=== PATIENT | male | born 1960 | race Caucasian/White ===

== ENCOUNTER 2016-09-19 21:10 | Emergency (ER) | payer OTHER ==
[~2016-09-19] VITALS: Ht 182.9 cm; Wt 72.7 kg
[~2016-09-19 21:10] MED LIST: BUPR100T8 PO; BUPR1TAB36 PO; OLAN5TAB PO; OMEP20CA11 PO
--- NOTE | 2016-09-19 21:28 | ED.REPORT ---
HPI-General Illness Date of Service Sep 19, 2016 ED Provider: MD Ambrose This is a 56 year old male with a history of TBI, EtOH abuse, multiple suicide attempts, bipolar disorder, frequent ED visits, and HTN brought to the ED by EMS complaining of suicidal ideation and alcohol intoxication. Pt is not cooperative with interview at this time. Nursing Notes Stated Complaint: ETOH,SUICIDAL IDEATION Chief Complaint: Substance Abuse Nursing Notes Reviewed: Yes Allergies: Coded Allergies: Penicillins (Verified Allergy, Unknown, 09/19/16) codeine (Verified Allergy, Unknown, 09/19/16) Uncoded Allergies: WOOL (Allergy, Unknown, 09/11/14) Scheduled Buprenorphine/Naloxone 8-2 mg (Buprenorphine/Naloxone 8-2 mg) 1 Each Tab.subl 1 TAB PO BID Bupropion ER (Bupropion ER) 100 Mg Tablet.er 100 MG PO DAILY Olanzapine (Olanzapine) 5 Mg Tablet 5 MG PO BID Omeprazole (Omeprazole) 20 Mg Capsule.dr 20 MG PO BID General Time Seen by MD: 21:27 Chief Complaint Other Hx Obtained From: Patient Arrived By: Walk-in Sudden in Onset?: Yes Onset Occurred: Just prior to arrival Symptom Duration: Since onset Severity: Current: No pain currently Recent Healthcare: No recent doctor visit, No recent hospitalization Similar Sx Previous: No Past Medical History Past Medical History Notes: Multiple ED visits - all for ETOh/substance abuse/SI Past Medical History TBI Hep C EtOH abuse Suicide attempts Bipolar Disorder personality disorders Reports: Hypertension Reports: Depression Past Surgical History Prior trauma jumping from a 6 story building. bilateral knees ACL Family History Noncontributory Smoking History Current Every Day Smoker, Heavy Tobacco Smoker Social History Hx of EtOH abuse Hx of polysubstance abuse (Meth, Heroin)- states he is on Suboxone Alcohol Use: >5 per day Drug Use: IV drugs, Meth, Other Other Social History: Poor social support, Frequent ED visitor, Homeless Ambulatory Status Independent Review of Systems Unable to Obtain ROS Intoxicated (ROS limited) Full Review of Systems Psychiatric: Reports: Suicidal ideation Complete sys rev & neg: except as marked. Physical Exam Vital Signs Vital Signs Date Time Temp Pulse Resp B/P Pulse Ox O2 Delivery O2 Flow Rate FiO2 09/20/16 03:22 96 18 143/89 96 Room Air 09/19/16 21:34 37.1 61 19 127/71 94 Room Air - Initial VS: Reviewed Head / Eyes: Atraumatic, Normocephalic, PERRL ENT: Mucous membranes moist, Conjunctiva normal, No scleral icterus Neck: Supple, Non-tender, Full range of motion Respiratory: Breath sounds normal, Clear to auscultation, No respiratory distress Cardiovascular: Regular rate & rhythm, Heart sounds normal, Intact distal pulses Abdomen / GI: Soft, Non-tender, No guarding, No rebound, No distention Extremities: Vascular intact, Neuro intact, No swelling, No tenderness Skin: Warm, Dry, No cyanosis Neurologic: Oriented General/Constitutional: Awake Interpretation & Diagnostics Lab Results Interpretation Result Diagram: 09/19/16 2223 09/19/16 222 Test 09/19/16 22:23 09/20/16 02:00 White Blood Count 5.4th/mm3 (3.8-10.1) Red Blood Count 5.38mil/mm3 (4.40-5.80) Hemoglobin 16.9g/dL (13.8-17.2) Hematocrit 48.5% (41.0-50.0) Mean Corpuscular Volume 90.1fL (81-100) Mean Corpuscular Hemoglobin 31.4pg (27.0-35.0) Mean Corpuscular Hemoglobin Concent 34.8% (32.0-37.0) Red Cell Distribution Width 12.0% (12.3-15.4) Platelet Count 177bil/L (150-400) Neutrophils (%) (Auto) 50.8% (40-74) Lymphocytes (%) (Auto) 39.4% (14-46) Monocytes (%) (Auto) 8.1% (4-12) Eosinophils (%) (Auto) 1.5% (0-5) Basophils (%) (Auto) 0% (0-3) Sodium Level 139mEq/L (134-144) Potassium Level 3.6mEq/L (3.5-5.2) Chloride Level 99mEq/L (97-108) Carbon Dioxide Level 25mmol/L (18-29) Blood Urea Nitrogen 11mg/dL (6-24) Creatinine 0.63mg/dL (0.76-1.27) Estimat Glomerular Filtration Rate 140mL/min (>59) Glucose Level 131mg/dL (60-99) Calcium Level 8.6mg/dL (8.5-10.1) Total Bilirubin 0.5mg/dL (0.0-1.2) Aspartate Amino Transf (AST/SGOT) 101U/L (0-50) Alanine Aminotransferase (ALT/SGPT) 85U/L (0-44) Alkaline Phosphatase 88U/L (25-150) Total Protein 7.2g/dL (6.4-8.4) Albumin 4.0g/dL (3.4-5.0) Thyroid Stimulating Hormone (TSH) 0.384uIU/mL (0.450-4.500) Alcohol, Quantitative 272mg/dL (0-10) Hold Urine Received (Received) Re-Eval/Medical Decision Med Decision/Clinical Course 56-year-old with chronic substance abuse and traumatic brain injury presents markedly intoxicated initially alleging suicidal ideation. He is nonverbal on my interview. He became agitated and uncooperative and required sedation. He is in seclusion of present awaiting sobriety for further evaluation. Transfer to [address] Elizabeth Time of Eval: 00:22 Re-Evaluation/Progress Note: [id number] evaluation, pt awake. Counseled Regarding: Diagnosis, Need for follow-up Discharge & Departure Primary Impression: Acute alcohol intoxication Additional Impressions: Polysubstance abuse Suicidal ideations Discharge Condition All VS Reviewed: Yes Condition: Stable Referrals: [facility] (PCP) Care Transferred to: Glenn Archuleta Care Transferred at: 06:00 Scribe Attestation Portions of this note were transcribed by Chasity Cabezas. I, Dr. Boggs personally performed the history, physical exam and medical decision-making; I reviewed and confirmed the accuracy of the information in the transcribed note. Signed by: eloise Villagomez. 09/19/2016, 21:30. Luis oBggs MD Sep 19, 2016 21:28 CHASITY CABEZAS Sep 19, 2016 21:34
[2016-09-19 21:34] VITALS: BP 127/71; PULSE 61; RESP 19; O2SAT 94
[2016-09-19] MEDS ORDERED: Haloperidol 5 mg/mL Inj IM PRN (21:45)
[2016-09-19 22:34] LABS: BASOPHILS % (AUTO) 0 % (0-3); EOSINOPHILS % (AUTO) 1.5 % (0-5); MONOCYTES % (AUTO) 8.1 % (4-12); Mean Corpuscular Hemoglobin 31.4 pg (27.0-35.0); Mean Corpuscular Volume 90.1 fL (81-100); NEUTROPHILS % (AUTO) 50.8 % (40-74); Platelet Count 177 bil/L (150-400)
[2016-09-19] MEDS ORDERED: Haloperidol 5 mg/mL Inj IM STA (23:05)
[2016-09-20 03:22] VITALS: BP 143/89; PULSE 96; RESP 18; O2SAT 96
[2016-09-20 18:30] VITALS: BP 143/89; PULSE 96; RESP 18; O2SAT 96
== END 2016-09-20 18:31 ==
LOC: SED 21:10 → EDBD 21:10 → SED 09-20 18:31
DX: F10.129 Alcohol abuse with intoxication, unspecified (principal); F15.10 Other stimulant abuse, uncomplicated; R45.851 Suicidal ideations; Z59.0 Homelessness; F17.210 Nicotine dependence, cigarettes, uncomplicated; I10 Essential (primary) hypertension; F31.9 Bipolar disorder, unspecified; Z87.820 Personal history of traumatic brain injury; F60.9 Personality disorder, unspecified; Z88.0 Allergy status to penicillin; Z88.5 Allergy status to narcotic agent; Z91.09 Other allergy status, other than to drugs and biological substances
CPT/HCPCS: 36415; 80053; 81002; 84443; 85025; 90791; 96372; 99285; G0480; J1630; J2060

== ENCOUNTER 2016-09-21 12:55 | Emergency (ER) | payer OTHER ==
[~2016-09-21] VITALS: Ht 182.9 cm; Wt 86.4 kg
[2016-09-21 12:58] VITALS: BP 146/82; PULSE 99; RESP 20; O2SAT 99
--- NOTE | 2016-09-21 14:45 | ED.REPORT ---
HPI-Psychiatric Illness Date of Service Sep 21, 2016 ED Provider: Evelio Gavlez MD This is a 56 year old male with a history of TBI, hep C, HTN, EtOH abuse, suicide attempts, bipolar disorder presenting to the ED. Pt is unable to state why he is in the ED, he is unaware that he is in the ED. Pt has frequent ED visits for alcohol intoxication and SI. Interview is limited at this time. Nursing Notes Stated Complaint: DETOX/SUICIDE Chief Complaint: Substance Abuse Nursing Notes Reviewed: Yes Allergies: Coded Allergies: Penicillins (Verified Allergy, Unknown, 09/19/16) codeine (Verified Allergy, Unknown, 09/19/16) Uncoded Allergies: WOOL (Allergy, Unknown, 09/11/14) Scheduled Buprenorphine/Naloxone 8-2 mg (Buprenorphine/Naloxone 8-2 mg) 1 Each Tab.subl 1 TAB PO BID Bupropion ER (Bupropion ER) 100 Mg Tablet.er 100 MG PO DAILY Olanzapine (Olanzapine) 5 Mg Tablet 5 MG PO BID Omeprazole (Omeprazole) 20 Mg Capsule.dr 20 MG PO BID General Time Seen by MD: 14:43 Chief Complaint Other Hx Obtained From: Patient Arrived By: Walk-in Symptom Duration: Since onset Severity: Current: No pain currently Pertinent Negative: Pt denies other symptoms Recent Healthcare: Recent doctor visit Similar Sx Previous: Yes Risk-Psychiatric Illness Suicide Risk Stratification RF Statements: Risk factors reviewed Past Medical History Past Medical History Notes: Multiple ED visits - all for ETOh/substance abuse/SI Past Medical History TBI Hep C EtOH abuse Suicide attempts Bipolar Disorder personality disorders Reports: Hypertension Reports: Depression Past Surgical History Prior trauma jumping from a 6 story building. bilateral knees ACL Family History Noncontributory Smoking History Current Every Day Smoker, Heavy Tobacco Smoker Social History Hx of EtOH abuse Hx of polysubstance abuse (Meth, Heroin)- states he is on Suboxone Alcohol Use: >5 per day Drug Use: IV drugs, Meth, Other Other Social History: Poor social support, Frequent ED visitor, Homeless Ambulatory Status Independent Review of Systems Unable to Obtain ROS Intoxicated Physical Exam Patient is overtly intoxicated with heavy smell of alcohol on breath. I wake him up to try to talk to him but he can only restate the same thing over and over again. He does not appear to be injured and says that "when [facility] to [facility] you are in a quandary." Initial Vital Signs Vital Signs (First) Date Time Temp Pulse Resp B/P Pulse Ox O2 Delivery O2 Flow Rate FiO2 09/21/16 12:58 36.8 99 20 146/82 99 Room Air Initial VS: Reviewed Head / Eyes: Atraumatic, Normocephalic, PERRL ENT: Mucous membranes moist, Conjunctiva normal, No scleral icterus Neck: Supple, Non-tender, Full range of motion Respiratory: Breath sounds normal, Clear to auscultation, No respiratory distress Cardiovascular: Regular rate & rhythm, Heart sounds normal, Intact distal pulses Extremities: Vascular intact, Neuro intact, No swelling, No tenderness Skin: Warm, Dry, No cyanosis Alertness: Positive: Somnolent Appearance / Presentation: Positive: Intoxicated Mental Status: Positive: Somnolent Psychiatric: Unable to evaluate at this time due to intoxication Interpretation & Diagnostics Interpretation & Diagnostics: Re-Eval/Medical Decision Med Decision/Clinical Course The patient is too drunk to evaluate this time we will reassess when the patient is more able to converse and participate in evaluation. He was moved to a hallway bed so he could sleep for a while. Sometime later he was missing from the bed and has apparently left the building. Re-Evaluation/Progress : Time of Eval: 17:30 Re-Evaluation/Progress Note: Pt is no longer in the room and has left the department. Discharge & Departure Departure Notes Awaiting patient to sober Impression: Primary Impression: Alcohol abuse Disposition: Home (pt left without being discharged) Discharge Condition All VS Reviewed: Yes Condition: Stable Referrals: [facility] (PCP) Scribe Attestation Portions of this note were transcribed by Chasity Carroll. I, Dr. Galvez personally performed the history, physical exam and medical decision-making; I reviewed and confirmed the accuracy of the information in the transcribed note. Signed by: eloise Villagomez. 09/21/2016, 18:00. Evelio Galvez MD Sep 21, 2016 14:45 CHASITY CARROLL Sep 21, 2016 14:48 Evelio Galvez MD Sep 21, 2016 14:45 CHASITY CARROLL Sep 21, 2016 14:48
== END 2016-09-21 17:23 | disposition left against medical advice (07) ==
LOC: SED 12:55
DX: F10.10 Alcohol abuse, uncomplicated (principal); I10 Essential (primary) hypertension; F17.200 Nicotine dependence, unspecified, uncomplicated; Z87.820 Personal history of traumatic brain injury; Z86.19 Personal history of other infectious and parasitic diseases; Z91.5 Personal history of self-harm; Z88.0 Allergy status to penicillin; Z88.5 Allergy status to narcotic agent

== ENCOUNTER 2016-12-04 02:33 | Emergency (ER) | payer OTHER ==
[~2016-12-04] VITALS: Ht 182.9 cm; Wt 100.0 kg
[2016-12-04 02:41] VITALS: BP 125/80; PULSE 92; RESP 16; O2SAT 97
--- NOTE | 2016-12-04 03:27 | ED.REPORT ---
HPI-General Illness Date of Service Dec 04, 2016 ED Provider: Luis Boggs MD 56 year old male with a history of polysubstance abuse presents to the ER requesting assistance with detox from methamphetamine and alcohol. He expresses desire for a bed at [facility]. Last methamphetamine and alcohol use was today. Patient does not voice any further medical complaints. Nursing Notes Stated Complaint: SUBSTANCE ABUSE, SUICIDAL Chief Complaint: Substance Abuse Nursing Notes Reviewed: Yes Allergies: Coded Allergies: Penicillins (Verified Allergy, Unknown, 09/19/16) codeine (Verified Allergy, Unknown, 09/19/16) Uncoded Allergies: WOOL (Allergy, Unknown, 09/11/14) Scheduled Buprenorphine/Naloxone 8-2 mg (Buprenorphine/Naloxone 8-2 mg) 1 Each Tab.subl 1 TAB PO BID Bupropion ER (Bupropion ER) 100 Mg Tablet.er 100 MG PO DAILY Olanzapine (Olanzapine) 5 Mg Tablet 5 MG PO BID Omeprazole (Omeprazole) 20 Mg Capsule.dr 20 MG PO BID General Time Seen by MD: 03:22 Chief Complaint Other (Alcohol and Methamphetamine abuse) Hx Obtained From: Patient Arrived By: Walk-in Sudden in Onset?: No Similar Sx Previous: Yes Past Medical History Past Medical History Notes: Multiple ED visits - all for ETOh/substance abuse/SI Past Medical History TBI Hep C EtOH abuse Suicide attempts Bipolar Disorder personality disorders Reports: Hypertension Reports: Depression Past Surgical History Prior trauma jumping from a 6 story building. bilateral knees ACL Family History Noncontributory Smoking History Current Every Day Smoker, Heavy Tobacco Smoker Social History Hx of EtOH abuse Hx of polysubstance abuse (Meth, Heroin)- states he is on Suboxone Alcohol Use: >5 per day Drug Use: IV drugs, Meth, Other Other Social History: Poor social support, Frequent ED visitor, Homeless Ambulatory Status Independent Review of Systems Full Review of Systems Constitutional: Denies: Chills, Fever Respiratory: Denies: Non-productive cough, Shortness of breath Cardiovascular: Denies: Chest pain GI: Denies: Nausea, Vomiting Neurologic: Denies: Shaking Complete sys rev & neg: except as marked. Physical Exam Vital Signs Vital Signs Date Time Temp Pulse Resp B/P Pulse Ox O2 Delivery O2 Flow Rate FiO2 12/04/16 02:41 36.4 92 16 125/80 97 Room Air Initial VS: Reviewed General/Constitutional: Well-developed, Well-nourished Head / Eyes: Atraumatic, Normocephalic Neck: Supple, Non-tender, Full range of motion Extremities: Vascular intact, Neuro intact, No swelling, No tenderness Skin: Warm, Dry, No cyanosis Neurologic: Alert, Oriented, Nonfocal Psychiatric: Mood/affect normal, Behavior normal, Normal thought content ENT: Airway patent, Mucous membranes moist Re-Eval/Medical Decision Med Decision/Clinical Course 56-year-old with polysubstance abuse presents requesting detox. Bed not available at this point at crisis. Await social work this morning, and contact with day shift at crisis.. Discharge & Departure Shift Change Sign-Out Patient Care Transferred: Yes Discussed Complaint(s): Yes Primary Impression: Methamphetamine abuse Additional Impression: Alcohol dependence Discharge Condition All VS Reviewed: Yes Condition: Stable Referrals: [facility] (PCP) Care Transferred to: Dr. Garcia Care Transferred at: 06:00 Britton[place]ginny Attestation Portions of this note were transcribed by Franki Robertson. I, Dr. Boggs, personally performed the history, physical exam and medical decision-making; I reviewed and confirmed the accuracy of the information in the transcribed note. Signed by: [place]. 12/04/2016 - 05:10 copies to: [facility] Luis Boggs MD Dec 04, 2016 03:27 FRANKI ROBERTSON Dec 04, 2016 03:35
[2016-12-04 11:30] VITALS: BP 128/71; PULSE 98; RESP 18; O2SAT 97
== END 2016-12-04 11:48 | disposition home or self-care (01) ==
LOC: SED 02:33
DX: F15.20 Other stimulant dependence, uncomplicated (principal); F10.20 Alcohol dependence, uncomplicated; F19.20 Other psychoactive substance dependence, uncomplicated; I10 Essential (primary) hypertension; F17.200 Nicotine dependence, unspecified, uncomplicated; K21.9 Gastro-esophageal reflux disease without esophagitis; Z91.5 Personal history of self-harm; Z87.820 Personal history of traumatic brain injury; Z59.0 Homelessness; Z88.0 Allergy status to penicillin; Z88.5 Allergy status to narcotic agent

== ENCOUNTER 2016-12-09 09:58 | Emergency (ER) | payer OTHER ==
[~2016-12-09] VITALS: Ht 182.9 cm; Wt 100.0 kg
[2016-12-09 10:02] VITALS: BP 132/85; PULSE 91; RESP 20; O2SAT 98
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
[2016-12-09 12:29] VITALS: PULSE 76; RESP 16; O2SAT 98
== END 2016-12-09 12:31 | disposition home or self-care (01) ==
LOC: SED 09:58
DX: F10.20 Alcohol dependence, uncomplicated (principal); I10 Essential (primary) hypertension; F17.200 Nicotine dependence, unspecified, uncomplicated; B18.2 Chronic viral hepatitis C; Z87.820 Personal history of traumatic brain injury; Z88.5 Allergy status to narcotic agent; Z88.0 Allergy status to penicillin

== ENCOUNTER 2016-12-15 09:04 | Emergency (ER) | payer OTHER ==
[~2016-12-15] VITALS: Ht 182.9 cm; Wt 90.9 kg
[2016-12-15 09:09] VITALS: BP 129/90; PULSE 104; RESP 18; O2SAT 98
--- NOTE | 2016-12-15 09:31 | ED.REPORT ---
HPI-Psychiatric Illness Date of Service Dec 15, 2016 ED Provider: Evelio Galvez MD Pt is a 56 y/o male w/ a hx of polysubstance abuse, suicide attempts, bipolar disorder, depression, TBI, Hep C, HTN, presenting to the ED due to suicidal ideations onset unknown. He states "I am a piece of shit and I want to ". He believes a secret society is out to get him and that whenever anybody around him coughs they are sending a signal to those who are out to get him. Recently, he was contemplating suicide by jumping off a bridge in [facility] while on his way to see the [place]. He states [facility] but he did not want to stay because he has "legal troubles" up here. He also relates that he has multiple recent criminal charges and stays in senior care. He has been drinking for "many days now" and took a bus here from [place] today. He denies any recent illicit drug abuse. He last used heroin 4 months ago. He agrees that he will be safe while here. FRANCISCO on arrival: 0.122 Utox: negative Nursing Notes Stated Complaint: SUICIDAL Chief Complaint: Psychiatric Complaint Nursing Notes Reviewed: Yes Allergies: Coded Allergies: Penicillins (Verified Allergy, Unknown, 09/19/16) codeine (Verified Allergy, Unknown, 09/19/16) Uncoded Allergies: WOOL (Allergy, Unknown, 09/11/14) Scheduled Buprenorphine/Naloxone 8-2 mg (Buprenorphine/Naloxone 8-2 mg) 1 Each Tab.subl 1 TAB PO BID Bupropion ER (Bupropion ER) 100 Mg Tablet.er 100 MG PO DAILY Olanzapine (Olanzapine) 5 Mg Tablet 5 MG PO BID Omeprazole (Omeprazole) 20 Mg Capsule. 20 MG PO BID General Time Seen by MD: 09:26 Chief Complaint Suicidal ideation Hx Obtained From: Patient Arrived By: Walk-in Symptom Duration: Since onset Progression Since Onset: Constant Severity: Current: No pain currently Severity: Maximum: No pain Recent Healthcare: Previous diagnosis Similar Sx Previous: Yes Risk-Psychiatric Illness Suicide Risk Stratification Suicide Risk Factors - Adult: : Alcohol use: Previous attempt: Prior psych admission RF Statements: Risk factors reviewed Past Medical History Past Medical History Notes: Multiple ED visits - all for ETOh/substance abuse/SI Past Medical History TBI Hep C Tuberculosis Hypertension Alcoholic seizures - possible EtOH abuse Meth abuse Heroin abuse Suicide attempts Bipolar Disorder Personality disorders Depression Past Surgical History Prior trauma jumping from a 6 story building. bilateral knees ACL Family History Noncontributory Smoking History Current Every Day Smoker, Heavy Tobacco Smoker Social History Hx of EtOH abuse Hx of polysubstance abuse (Meth, Heroin) Alcohol Use: >5 per day Drug Use: In recovery, IV drugs, Meth, Other Other Social History: Poor social support, Frequent ED visitor, Homeless Ambulatory Status Independent Review of Systems Constitutional: Denies: Chills, Fever Cardiovascular: Denies: Chest pain, Dyspnea on exertion GI: Denies: Abdominal pain, Nausea, Vomiting Psychiatric: Reports: Anxiety, Delusional, Depression, Stress, Suicidal ideation, Denies: Homicidal ideation Complete sys rev & neg: except as marked. Physical Exam Initial Vital Signs Vital Signs (First) Date Time Temp Pulse Resp B/P Pulse Ox O2 Delivery O2 Flow Rate FiO2 12/15/16 09:09 36.7 104 18 129/90 98 Room Air Initial VS: Reviewed, Vital signs abnormal Head / Eyes: Atraumatic, Normocephalic, PERRL ENT: Mucous membranes moist, Conjunctiva normal, No scleral icterus Neck: Supple, Full range of motion Respiratory: Breath sounds normal, Clear to auscultation, No respiratory distress Cardiovascular: Regular rate & rhythm, Heart sounds normal, Intact distal pulses Abdomen / GI: Soft, Non-tender, No guarding, No rebound, No distention Extremities: Vascular intact, Neuro intact, No swelling, No tenderness Skin: Warm, Dry, No cyanosis General/Constitutional: Awake, Alert, No acute distress, Cooperative, Not toxic appearing Behavior: Negative: Appears intoxicated Alcohol on breath Neurologic: Oriented X3, Speech NL, No motor deficits, No sensory deficits, Memory NL Psychiatric: Not homicidal, No hallucinations Abnormal Mood/Affect: Positive: Depressed Abnormal Thinking / Perception: Positive: Suicidal, with plan Interpretation & Diagnostics Lab Results Interpretation Result Diagram: 12/15/16 0956 12/15/16 0956 Test 12/15/16 09:56 White Blood Count 5.2th/mm3 (3.8-10.1) Red Blood Count 4.75mil/mm3 (4.40-5.80) Hemoglobin 15.6g/dL (13.8-17.2) Hematocrit 44.4% (41.0-50.0) Mean Corpuscular Volume 93.5fL (81-100) Mean Corpuscular Hemoglobin 32.8pg (27.0-35.0) Mean Corpuscular Hemoglobin Concent 35.1% (32.0-37.0) Red Cell Distribution Width 14.6% (12.3-15.4) Platelet Count 232bil/L (150-400) Neutrophils (%) (Auto) 61.5% (40-74) Lymphocytes (%) (Auto) 30.3% (14-46) Monocytes (%) (Auto) 7.0% (4-12) Eosinophils (%) (Auto) 0.6% (0-5) Basophils (%) (Auto) 0.2% (0-3) Sodium Level 137mEq/L (134-144) Potassium Level 4.0mEq/L (3.5-5.2) Chloride Level 98mEq/L (97-108) Carbon Dioxide Level 21mmol/L (18-29) Blood Urea Nitrogen 11mg/dL (6-24) Creatinine 0.60mg/dL (0.76-1.27) Estimat Glomerular Filtration Rate 148mL/min (>59) Glucose Level 110mg/dL (60-99) Calcium Level 8.9mg/dL (8.5-10.1) Total Bilirubin 0.3mg/dL (0.0-1.2) Aspartate Amino Transf (AST/SGOT) 35U/L (0-50) Alanine Aminotransferase (ALT/SGPT) 38U/L (0-44) Alkaline Phosphatase 93U/L (25-150) Total Protein 7.1g/dL (6.4-8.4) Albumin 4.2g/dL (3.4-5.0) Thyroid Stimulating Hormone (TSH) 0.775uIU/mL (0.450-4.500) Hold Rosado Top Tube Received (Received) Re-Eval/Medical Decision Counseled Regarding: Diagnosis, Lab results Discharge & Departure Impression: Primary Impression: Depression Depression Type: major depressive disorder Major depression recurrence: recurrent Active/Remission status: currently active Major depression episode severity: severe Psychotic features: without psychotic features Qualified Code: F33.2 - Major depressive disorder, recurrent severe without psychotic features Additional Impressions: Suicidal ideations Alcohol abuse Disposition: Home Discharge Condition All VS Reviewed: Yes Condition: Stable Patient Instructions: Major Depression (DC) Additional Instructions: Go directly to crisis respite. Use lorazepam as needed for withdrawal. Referrals: [facility] (PCP) Scribe Attestation Portions of this note were transcribed by Jay Leonardo. I, Dr. Galvez, personally performed the history, physical exam and medical decision-making; I reviewed and confirmed the accuracy of the information in the transcribed note. Signed by [place], 12/15/16 - 1100 copies to: [facility] Evelio Galvez MD Dec 15, 2016 09:31 JAY LEONARDO Dec 15, 2016 10:03
[2016-12-15 10:00] LABS: BASOPHILS % (AUTO) 0.2 % (0-3); EOSINOPHILS % (AUTO) 0.6 % (0-5); Mean Corpuscular Hemoglobin 32.8 pg (27.0-35.0); Mean Corpuscular Volume 93.5 fL (81-100); NEUTROPHILS % (AUTO) 61.5 % (40-74); Platelet Count 232 bil/L (150-400)
[2016-12-15] MEDS ORDERED: LORazepam 2 mg Tablet PO ONE (10:10)
[2016-12-15 15:02] VITALS: BP 130/87; PULSE 99; O2SAT 96
[2016-12-15] MEDS ORDERED: LORA1TAB PO (16:21)
[2016-12-15] MEDS ORDERED: LORazepam 1 mg Tablet PO ONE (16:25)
[2016-12-15] MEDS ORDERED: Pantoprazole 40 mg ER24 Tablet PO ONE (17:10)
[2016-12-15 19:24] VITALS: PULSE 98; RESP 14
== END 2016-12-15 19:26 | disposition home or self-care (01) ==
LOC: SED 09:37
DX: F33.2 Major depressive disorder, recurrent severe without psychotic features (principal); R45.851 Suicidal ideations; F10.10 Alcohol abuse, uncomplicated; I10 Essential (primary) hypertension; F31.9 Bipolar disorder, unspecified; F17.200 Nicotine dependence, unspecified, uncomplicated; Z59.0 Homelessness; Z88.0 Allergy status to penicillin; Z88.5 Allergy status to narcotic agent

== ENCOUNTER 2017-03-06 01:53 | Emergency (ER) | payer OTHER ==
[~2017-03-06] VITALS: Ht 182.9 cm; Wt 90.9 kg
[~2017-03-06 01:53] MED LIST changes: +LORA1TAB PO
[2017-03-06 02:01] VITALS: BP 153/99; PULSE 95; RESP 18; O2SAT 98
== END 2017-03-06 03:00 | disposition left against medical advice (07) ==
LOC: SED 01:53
DX: R07.81 Pleurodynia (principal); W10.9XXA Fall (on) (from) unspecified stairs and steps, initial encounter; Y93.9 Activity, unspecified; Y92.009 Unspecified place in unspecified non-institutional (private) residence as the place of occurrence of the external cause; Y99.8 Other external cause status

== ENCOUNTER 2017-03-23 03:55 | Emergency (ER) | payer OTHER ==
[~2017-03-23] VITALS: Ht 180.3 cm; Wt 89.5 kg
[2017-03-23 04:02] VITALS: BP 144/95; PULSE 84; RESP 16; O2SAT 97
--- NOTE | 2017-03-23 04:10 | ED.REPORT ---
HPI-General Illness Date of Service Mar 23, 2017 ED Provider: Michele Frankel MD A 56 year old male with a history of bipolar disorder, depression, suicidal ideation, polysubstance abuse and hypertension presents to the ED requesting detox. The pt had been on Suboxone but was arrested for two months. Following his release, he lived in a treatment house that did not allow Suboxone. The pt relapsed and began drinking again three weeks ago with occasional methamphetamine and heroin abuse. The pt also reports vague suicidal ideation. Nursing Notes Stated Complaint: DETOX Chief Complaint: Substance Abuse Nursing Notes Reviewed: Yes Allergies: Coded Allergies: Penicillins (Verified Allergy, Unknown, 03/06/17) codeine (Verified Allergy, Unknown, 03/06/17) Uncoded Allergies: WOOL (Allergy, Unknown, 09/11/14) Scheduled Buprenorphine/Naloxone 8-2 mg (Buprenorphine/Naloxone 8-2 mg) 1 Each Tab.subl 1 TAB PO BID Bupropion ER (Bupropion ER) 100 Mg Tablet.er 100 MG PO DAILY Olanzapine (Olanzapine) 5 Mg Tablet 5 MG PO BID Omeprazole (Omeprazole) 20 Mg Capsule.dr 20 MG PO BID Scheduled PRN Lorazepam (Lorazepam) 1 Mg Tablet 1 MG PO TID PRN PRN For Alcohol Cessation General Time Seen by MD: 04:09 Chief Complaint Other (Detox request) Hx Obtained From: Patient Arrived By: Walk-in Sudden in Onset?: No Recent Healthcare: Recent doctor visit Similar Sx Previous: Yes Past Medical History Past Medical History Notes: Multiple ED visits - all for ETOh/substance abuse/SI Past Medical History TBI Hep C Tuberculosis Hypertension Alcoholic seizures - possible EtOH abuse Meth abuse Heroin abuse Suicide attempts Bipolar Disorder Personality disorders Depression Past Surgical History Prior trauma jumping from a 6 story building. bilateral knees ACL Family History Noncontributory Smoking History Current Every Day Smoker Social History Hx of EtOH abuse Hx of polysubstance abuse (Meth, Heroin) Alcohol Use: >5 per day Drug Use: In recovery, IV drugs, Meth, Other Other Social History: Poor social support, Frequent ED visitor, Homeless Ambulatory Status Independent Review of Systems Full Review of Systems Respiratory: Denies: Non-productive cough, Shortness of breath Cardiovascular: Denies: Chest pain Musculoskeletal: Denies: Back pain, Neck pain Skin: Denies Rash Psychiatric: Reports: Suicidal ideation Complete sys rev & neg: except as marked. Physical Exam Vital Signs Vital Signs Date Time Temp Pulse Resp B/P Pulse Ox O2 Delivery O2 Flow Rate FiO2 03/23/17 06:23 36.5 81 16 139/89 98 Room Air 03/23/17 06:06 81 16 139/89 98 Room Air 03/23/17 04:02 36.5 84 16 144/95 97 Room Air Initial VS: Reviewed, Vital signs abnormal General/Constitutional: Awake, Alert smells of alcohol Head / Eyes: Atraumatic, Normocephalic, PERRL, EOMI ENT: Atraumatic, Airway patent, Mucous membranes moist Neck: Atraumatic, Supple, Full range of motion Respiratory / Chest: Atraumatic, Breath sounds NL, Breath sounds = bilat, No respiratory distress Cardiovascular: Heart rate NL, Regular rhythm, Heart sounds NL Abdomen: Atraumatic, Soft, Non-tender Back: Atraumatic, Full range of motion Upper Extremities Upper Extremity / MS: Atraumatic, Full range of motion Lower Extremity / Pelvis / MS: Atraumatic, Full range of motion Skin: Atraumatic, Color NL, No rash, Warm, Dry Neurologic: Oriented X3, Speech NL, No motor deficits, No sensory deficits Psychiatric: Affect NL, Mood NL Re-Eval/Medical Decision Med Decision/Clinical Course 56-year-old male with a recent relapse on alcohol and heroin. He was [facility] get [facility], but there is no beds available. Options for outpatient treatment were discussed. Source of Hx: Old records Consultation : Call Returned at: 04:46 Note: Spoke with [facility] regarding bed availability. There are no beds available at this time. Counseled Regarding: Diagnosis, Lab results, Need for follow-up, When/why to return to ED Discharge & Departure Primary Impression: Alcohol dependence Substance use status: uncomplicated Qualified Code: F10.20 - Alcohol dependence, uncomplicated Additional Impression: Opioid dependence Substance use status: uncomplicated Qualified Code: F11.20 - Opioid dependence, uncomplicated Disposition: Home Discharge Condition All VS Reviewed: Yes Condition: Stable Additional Instructions: There are currently no beds available at sobering services. You can contact them to get preregistered, and then contact them daily for bed availability. I also recommend that you get back into services at [facility]. Referrals: [facility] (PCP) Scribe Attestation Portions of this note were transcribed by Lucretia Shell. I, Dr. Frankel personally performed the history, physical exam and medical decision-making; I reviewed and confirmed the accuracy of the information in the transcribed note. Signed by: [place], 03/23/2017 and 0543. copies to: [facility] Michele Frankel MD Mar 23, 2017 04:10 LUCRETIA SHELL Mar 23, 2017 04:26
[2017-03-23 06:06] VITALS: BP 139/89; PULSE 81; RESP 16; O2SAT 98
[2017-03-23 06:23] VITALS: BP 139/89; PULSE 81; RESP 16; O2SAT 98
== END 2017-03-23 06:24 | disposition home or self-care (01) ==
LOC: SED 03:55
DX: F10.20 Alcohol dependence, uncomplicated (principal); F11.20 Opioid dependence, uncomplicated; I10 Essential (primary) hypertension; F17.200 Nicotine dependence, unspecified, uncomplicated; Z87.820 Personal history of traumatic brain injury; Z88.0 Allergy status to penicillin; Z88.5 Allergy status to narcotic agent

== ENCOUNTER 2017-03-24 16:02 | Emergency (ER) | payer OTHER ==
[~2017-03-24] VITALS: Ht 180.3 cm; Wt 90.9 kg
[2017-03-24 16:18] VITALS: BP 138/87; PULSE 98; RESP 16; O2SAT 97
--- NOTE | 2017-03-24 18:30 | ED.REPORT ---
HPI-Psychiatric Illness Date of Service Mar 24, 2017 ED Provider: Doc,Ed MD History of Present Illness: 56-year-old male here for mental health issues. He has been feeling suicidal recently. Today he called his counselor asking where bridges were that he could jump off of. He has recently been doing good in a clean and sober house. He was kicked out though and has been on the streets for a few days. Last meth use was 3-4 days ago. He has been drinking alcohol daily, including this AM. He is looking to go to crisis and get help. History of suicidal attempt over 10 years ago. in the Past he has jumped off a bridge and the front of a train. He is no longer taking his medications he has not been a few months Nursing Notes Stated Complaint: SUICIDAL, MENTAL HEALTH EVAL Chief Complaint: Substance Abuse Nursing Notes Reviewed: Yes Allergies: Coded Allergies: Penicillins (Verified Allergy, Unknown, 03/06/17) codeine (Verified Allergy, Unknown, 03/06/17) Uncoded Allergies: WOOL (Allergy, Unknown, 09/11/14) Scheduled Buprenorphine/Naloxone 8-2 mg (Buprenorphine/Naloxone 8-2 mg) 1 Each Tab.subl 1 TAB PO BID Bupropion ER (Bupropion ER) 100 Mg Tablet.er 100 MG PO DAILY Olanzapine (Olanzapine) 5 Mg Tablet 5 MG PO BID Omeprazole (Omeprazole) 20 Mg Capsule.dr 20 MG PO BID Scheduled PRN Lorazepam (Lorazepam) 1 Mg Tablet 1 MG PO TID PRN PRN For Alcohol Cessation General Time Seen by MD: 18:29 Chief Complaint Suicidal ideation Hx Obtained From: Patient Arrived By: Walk-in Onset Occurred: 3 days ago Context of Onset: Illicit drug use, EtOH use Symptom Duration: Duration unknown Recent Healthcare: Previous diagnosis Similar Sx Previous: Yes Risk-Psychiatric Illness Suicide Risk Stratification Suicide Risk Factors - Adult: : Alcohol use: Previous attempt: Substance abuse RF Statements: Risk factors reviewed Past Medical History Past Medical History Notes: Multiple ED visits - all for ETOh/substance abuse/SI Past Medical History TBI Hep C Tuberculosis Hypertension Alcoholic seizures - possible EtOH abuse Meth abuse Heroin abuse Suicide attempts Bipolar Disorder Personality disorders Depression Past Surgical History Prior trauma jumping from a 6 story building. bilateral knees ACL Family History Noncontributory Smoking History Current Every Day Smoker Social History Hx of EtOH abuse Hx of polysubstance abuse (Meth, Heroin) Alcohol Use: >5 per day Drug Use: In recovery, IV drugs, Meth, Other Other Social History: Poor social support, Frequent ED visitor, Homeless Ambulatory Status Independent Review of Systems Basic Review of Systems Eyes: Vision NL, No discharge ENT: Hearing NL, No pain, No nasal congestion, No pharyngeal pain Musculoskeletal: No extremity swelling, No extremity pain, Full range of motion , Joints NL Endocrine: No cold intolerance, No heat intolerance, No weight gain, No weight loss Allergy / Immune: No allergy Constitutional: Denies: Chills, Fatigue, Fever Respiratory: Denies: Dyspnea on exertion Cardiovascular: Denies: Chest pain GI: Denies: Abdominal pain, Nausea, Vomiting Neurologic: Denies: Confusion, Dizziness Psychiatric: Reports: Suicidal ideation Complete sys rev & neg: except as marked. Physical Exam Initial Vital Signs Vital Signs (First) Date Time Temp Pulse Resp B/P Pulse Ox O2 Delivery O2 Flow Rate FiO2 03/24/17 16:18 36.7 98 16 138/87 97 Room Air Initial VS: Reviewed, Vital signs normal Head / Eyes: Atraumatic, Normocephalic, PERRL ENT: Mucous membranes moist, Conjunctiva normal, No scleral icterus Neck: Supple, Non-tender, Full range of motion Respiratory: Breath sounds normal, Clear to auscultation, No respiratory distress Skin: Warm, Dry, No cyanosis Psychiatric: Affect NL, Mood NL, Not homicidal, No hallucinations, Cognitive function NL, Thought content NL Poor eye contact but good conversational skills today. c/o si Interpretation & Diagnostics Lab Results Interpretation Result Diagram: 03/25/17 0648 03/25/17 0648 Test 03/24/17 19:30 03/25/17 06:48 Hold Urine Received (Received) White Blood Count 3.9th/mm3 (3.8-10.1) Red Blood Count 5.15mil/mm3 (4.40-5.80) Hemoglobin 16.9g/dL (13.8-17.2) Hematocrit 46.9% (41.0-50.0) Mean Corpuscular Volume 91.1fL (81-100) Mean Corpuscular Hemoglobin 32.8pg (27.0-35.0) Mean Corpuscular Hemoglobin Concent 36.0% (32.0-37.0) Red Cell Distribution Width 12.4% (12.3-15.4) Platelet Count 169bil/L (150-400) Neutrophils (%) (Auto) 45.3% (40-74) Lymphocytes (%) (Auto) 34.3% (14-46) Monocytes (%) (Auto) 13.5% (4-12) Eosinophils (%) (Auto) 6.3% (0-5) Basophils (%) (Auto) 0.3% (0-3) Sodium Level 140mEq/L (134-144) Potassium Level 4.0mEq/L (3.5-5.2) Chloride Level 104mEq/L (97-108) Carbon Dioxide Level 22mmol/L (18-29) Blood Urea Nitrogen 18mg/dL (6-24) Creatinine 0.61mg/dL (0.76-1.27) Estimat Glomerular Filtration Rate 145mL/min (>59) Glucose Level 94mg/dL (60-99) Calcium Level 8.8mg/dL (8.5-10.1) Magnesium Level 2.0mg/dL (1.6-2.6) Total Bilirubin 1.1mg/dL (0.0-1.2) Aspartate Amino Transf (AST/SGOT) 54U/L (0-50) Alanine Aminotransferase (ALT/SGPT) 49U/L (0-44) Alkaline Phosphatase 101U/L (25-150) Total Protein 6.3g/dL (6.4-8.4) Albumin 3.7g/dL (3.4-5.0) Lipase 56U/L (13-60) Re-Eval/Medical Decision Med Decision/Clinical Course The licensed clinical social worker says that she did not have time to see him this evening before her shift was over. She will put a note in the computer and he will be seen in the morning by the next licensed clinical social worker on duty. He will stay tonight emergency room. Patient has been calm and cooperative throughout the stay. 2114- report to Dr Bernabe Re-Evaluation/Progress #1: Time of Eval: 08:00 )( Re-Eval Psychiatric: No danger to self Re-Evaluation/Progress Note: Psoas and suicidal ideation. Would like him back on his medications. Would like to go to crisis respite or stay in the care center. Awoke him and he has minimal signs of withdrawal at this time no additional medications given. We will clarify last psychiatric medications and doses once [facility] is available Re-Evaluation/Progress #2: Time of Eval: 11:06 Re-Evaluation/Progress Note: That is available at crisis at 6 PM. He is now requesting Ativan has CWA score of 9 will give him 2 mg. Still waiting on additional medication doses from [facility] Re-Evaluation/Progress #3: Time of Eval: 11:43 Re-Evaluation/Progress Note: meds as of 06/20 Timur pain 5 mg twice a day, bupropion 100 mg every morning Discharge & Departure Impression: Primary Impression: Substance abuse Additional Impression: Suicidal ideations Patient Instructions: Suicide Prevention for Adults (ED) Referrals: [facility] (PCP) Attending Statement I have seen and examined the patient. I have reviewed the chart and agree with the documentation as recorded by the Midlevel Provider, including assessment, treatment plan, and disposition. Findings from my exam are included in documentation above. The patient's care was turned over to me at change of shift. He is awaiting voluntary psychiatric evaluation. His care is now being turned over at change of shift to Dr. Garcia. ------- I assumed care of patient at shift change. I woke him and he was alert and appropriate. He is still suicidal but does not present with tremor or other signs of alcohol withdrawal. He reports that he had Olanzapine (10mg x2 a day) and Wellbutrin (100mg x2 a day) prescribed through [facility] previously and that he would like to be put back on these medications. His last drink was yesterday. Mary Alice Jerome Mar 24, 2017 18:29 Michele Frankel MD Mar 25, 2017 06:56 MARITZA CARDENAS Mar 25, 2017 06:59 Evelyn Garcia MD Mar 25, 2017 11:07
[2017-03-24 18:56] VITALS: BP 113/76; PULSE 83; RESP 20; O2SAT 100
[2017-03-24 20:50] VITALS: BP_SYST 127; BP_SYST 149; BP_DIAS 67; BP_DIAS 93; PULSE 66; PULSE 95; RESP 18; O2SAT 96; O2SAT 99
[2017-03-25 00:53] VITALS: BP 165/103; PULSE 87; RESP 16; O2SAT 98
[2017-03-25] MEDS ORDERED: Thiamine Inj 100 MG, Folic Acid Inj 1 MG, Magnesium Sulfate 50% Inj 2 GM, Multivitamins... IV ONE ×5 (06:25)
[2017-03-25 07:08] LABS: BASOPHILS % (AUTO) 0.3 % (0-3); EOSINOPHILS % (AUTO) 6.3 % (0-5); MONOCYTES % (AUTO) 13.5 % (4-12); Mean Corpuscular Hemoglobin 32.8 pg (27.0-35.0); Mean Corpuscular Volume 91.1 fL (81-100); NEUTROPHILS % (AUTO) 45.3 % (40-74); Platelet Count 169 bil/L (150-400)
[2017-03-25 10:53] VITALS: BP 119/72; PULSE 75; RESP 20; O2SAT 98
[2017-03-25] MEDS ORDERED: LORazepam 2 mg Tablet PO ONE (10:55)
[2017-03-25] MEDS ORDERED: BUPR100T15 PO (12:32)
[2017-03-25] MEDS ORDERED: OLAN5TAB39 PO (12:32)
[2017-03-25] MEDS ORDERED: ALPR1TAB7 PO (12:32)
[2017-03-25] MEDS ORDERED: 0.9% Sodium Chloride 1,000 ML IV ONE (12:40)
[2017-03-25 17:18] VITALS: BP 149/87; PULSE 77; RESP 16; O2SAT 97
== END 2017-03-25 17:40 | disposition home or self-care (01) ==
LOC: SED 16:02
DX: F15.10 Other stimulant abuse, uncomplicated (principal); F10.10 Alcohol abuse, uncomplicated; R45.851 Suicidal ideations; I10 Essential (primary) hypertension; F31.9 Bipolar disorder, unspecified; F60.9 Personality disorder, unspecified; F17.200 Nicotine dependence, unspecified, uncomplicated; Z91.5 Personal history of self-harm; Z87.820 Personal history of traumatic brain injury; Z86.19 Personal history of other infectious and parasitic diseases; Z59.0 Homelessness; Z88.0 Allergy status to penicillin; Z88.5 Allergy status to narcotic agent
CPT/HCPCS: 36415; 80053; 81002; 82075; 83690; 83735; 85025; 90791; 96360; 99284; J7030

== ENCOUNTER 2017-04-02 15:42 | Emergency (ER) | payer OTHER ==
[~2017-04-02] VITALS: Ht 180.3 cm; Wt 89.2 kg
[~2017-04-02 15:42] MED LIST changes: +ALPR1TAB7 PO; +BUPR100T15 PO; +OLAN5TAB39 PO
[2017-04-02 15:47] VITALS: BP 157/90; PULSE 112; RESP 24; O2SAT 98
[2017-04-03] MEDS ORDERED: OLAN5TAB25 PO (02:21)
[2017-04-03] MEDS ORDERED: BUPR100T15 PO (02:22)
== END 2017-04-02 18:29 | disposition left against medical advice (07) ==
LOC: SED 15:42
DX: F19.10 Other psychoactive substance abuse, uncomplicated (principal); Z53.21 Procedure and treatment not carried out due to patient leaving prior to being seen by health care provider

== ENCOUNTER 2017-04-03 01:05 | Emergency (ER) | payer OTHER ==
[~2017-04-03] VITALS: Ht 180.3 cm; Wt 89.1 kg
[2017-04-03 01:07] VITALS: BP 140/86; PULSE 95; RESP 12; O2SAT 99
--- NOTE | 2017-04-03 01:19 | ED.REPORT ---
HPI-General Illness Date of Service Apr 03, 2017 ED Provider: Dr. Luis Boggs MD A 56 year old, homeless male with a history of bipolar disorder, depression, suicidal ideation, hepatitis C, previous TBI, polysubstance abuse and hypertension presents to the ED requesting detox. Patient admits to meth and EtOH use over the past 2 days. He states that he "cut all of his identification and credit cards" while on a meth trip a few days ago. Patient has not been taking his regular medications which includes 5 mg of Zyprexa and Wellbutrin. He is currently seeking a medication refill and placement at [facility]. He currently has no shoes or socks, is dressed in broad cloth underpants and a shirt. Nursing Notes Stated Complaint: SUBSTANCE ABUSE Chief Complaint: Substance Abuse Nursing Notes Reviewed: Yes Allergies: Coded Allergies: Penicillins (Verified Allergy, Unknown, 03/06/17) codeine (Verified Allergy, Unknown, 03/06/17) Uncoded Allergies: WOOL (Allergy, Unknown, 09/11/14) Scheduled Buprenorphine/Naloxone 8-2 mg (Buprenorphine/Naloxone 8-2 mg) 1 Each Tab.subl 1 TAB PO BID Bupropion (Bupropion) 100 Mg Tablet 100 MG PO DAILY Bupropion (Bupropion) 100 Mg Tablet 100 MG PO BID Bupropion ER (Bupropion ER) 100 Mg Tablet.er 100 MG PO DAILY Olanzapine (Olanzapine) 5 Mg Tablet 5 MG PO BID Olanzapine ODT (Olanzapine ODT) 5 Mg Tablet 5 MG PO BID Olanzapine ODT (Zyprexa Zydis) 5 Mg Tablet 5 MG PO DAILY Omeprazole (Omeprazole) 20 Mg Capsule.dr 20 MG PO BID Scheduled PRN Alprazolam (Alprazolam) 1 Mg Tablet 1 MG PO DIRECTED PRN PRN For Anxiety 1 q6 hrs for 4 doses, then 1 q8 hours for 3 doses then on q 12hrs for 2 doses. Lorazepam (Lorazepam) 1 Mg Tablet 1 MG PO TID PRN PRN For Alcohol Cessation General Time Seen by : 01:19 Chief Complaint Other (Detox) Hx Obtained From: Patient Arrived By: Walk-in Sudden in Onset?: No Onset Occurred: 2 days ago Context of Onset: Amphetamine use, EtOH use Symptom Duration: Since onset Pertinent Negative: Pt denies other symptoms Recent Healthcare: No recent hospitalization, Recent doctor visit Past Medical History Past Medical History Notes: Multiple ED visits - all for ETOh/substance abuse/SI Past Medical History TBI Hep C Tuberculosis Hypertension Alcoholic seizures - possible EtOH abuse Meth abuse Heroin abuse Suicide attempts Bipolar Disorder Personality disorders Depression Past Surgical History Prior trauma jumping from a 6 story building. bilateral knees ACL Family History Noncontributory Smoking History Current Every Day Smoker Social History Hx of EtOH abuse Hx of polysubstance abuse (Meth, Heroin) Alcohol Use: >5 per day Drug Use: In recovery, IV drugs, Meth, Other Other Social History: Poor social support, Frequent ED visitor, Homeless Ambulatory Status Independent Review of Systems + Seeking detox Complete sys rev & neg: except as marked. Physical Exam Vital Signs Vital Signs Date Time Temp Pulse Resp B/P Pulse Ox O2 Delivery O2 Flow Rate FiO2 04/03/17 01:07 36.7 95 12 140/86 99 Room Air Initial VS: Reviewed Neck: Supple, Non-tender, Full range of motion Extremities: Vascular intact, Neuro intact, No swelling, No tenderness General/Constitutional: Awake, Alert, No acute distress Behavior: Positive: Anxious Appearance / Presentation: Positive: Hygiene poor GENERAL: Disheveled Head / Eyes: Atraumatic, Normocephalic, PERRL Respiratory / Chest: Atraumatic, No respiratory distress Cardiovascular: Peripheral circulation NL, Pulses = bilaterally Abdomen: Atraumatic, Soft Ankle / Foot: Atraumatic, Neurologic intact, Vascular intact FOOT: Numerous blisters present on the bottom of the patient's feet Barefoot Skin: Atraumatic, Warm, Dry SKIN: 1st degress sunburn Neurologic: Oriented X3, Speech NL, No motor deficits, No sensory deficits Psychiatric: Not suicidal, Not homicidal Abnormal Mood/Affect: Positive: Anxious Abnormal Thinking / Perception: Positive: Flight of ideas, Tangential thinking Interpretation & Diagnostics Lab Results Interpretation Test 04/03/17 01:45 Hold Urine Received (Received) Lab Results Interpretation: Drug Screen + Meth + Amphetamines Re-Eval/Medical Decision Med Decision/Clinical Course 56-year-old homeless man with multiple psychiatric issues presents seeking [facility] at crisis. He has a long history with them and they require additional staff to manage him. They may have bit on Tuesday and advised that he call Tuesday morning. In the meantime, I have renewed his Zyprexa and his Wellbutrin. I have provided jeans and hospital socks as well as an additional shirt from our donated supplies. He is discharged now in stable condition. Time of Eval: 01:59 Patient Status: Condition improved Re-Evaluation/Progress Note: Patient is re-evaluated. He is informed of the lack of available beds at Crisis. The patient understands and agrees with the intended treatment plan to discharge. Consultation : Call Returned at: 02:15 Note: [facility] - No available beds for the patient at this time. Counseled Regarding: Diagnosis, Lab results, Need for follow-up, When/why to return to ED Discharge & Departure Primary Impression: Substance abuse Additional Impressions: Alcohol abuse Homelessness Alcohol dependence Medication refill Disposition: Home Discharge Condition All VS Reviewed: Yes Condition: Improved Patient Instructions: Abuse of Alcohol (ED), Methamphetamine Abuse (ED) Additional Instructions: Resume your Zyprexa daily. Resume your Wellbutrin twice daily. Follow-up with [facility]. Follow-up with [facility] for potential Suboxone treatment. Referrals: [facility] (PCP) [facility] Scribe Attestation Portions of this note were transcribed by Shane Delvalle. I, Dr. Boggs personally performed the history, physical exam and medical decision-making; I reviewed and confirmed the accuracy of the information in the transcribed note. copies to: [facility] Luis Boggs MD Apr 03, 2017 01:19 SHANE DELVALLE Apr 03, 2017 01:57
[2017-04-03] MEDS ORDERED: OLANZapine Zydis ODT 5 mg Tablet PO SCH (01:55)
[2017-04-03] MEDS ORDERED: LORazepam 1 mg Tablet PO ONE (01:55)
[2017-04-03] MEDS ORDERED: OLAN5TAB25 PO (02:21)
[2017-04-03] MEDS ORDERED: BUPR100T15 PO (02:22)
== END 2017-04-03 02:31 | disposition home or self-care (01) ==
LOC: SED 01:05
DX: F19.10 Other psychoactive substance abuse, uncomplicated (principal); F10.20 Alcohol dependence, uncomplicated; Z76.0 Encounter for issue of repeat prescription; Z59.0 Homelessness; F17.200 Nicotine dependence, unspecified, uncomplicated; I10 Essential (primary) hypertension; Z87.820 Personal history of traumatic brain injury; Z79.899 Other long term (current) drug therapy; Z88.0 Allergy status to penicillin; Z88.5 Allergy status to narcotic agent

== ENCOUNTER 2017-04-13 08:54 | Emergency (ER) | payer OTHER ==
[~2017-04-13] VITALS: Ht 182.9 cm; Wt 90.9 kg
[~2017-04-13 08:54] MED LIST changes: +OLAN5TAB25 PO
[2017-04-13 09:11] VITALS: BP 131/80; PULSE 96; RESP 16; O2SAT 98
--- NOTE | 2017-04-13 09:22 | ED.REPORT ---
HPI-Overdose/Alcohol Toxicity Date of Service Apr 13, 2017 ED Provider: Nursing Notes Stated Complaint: DETOX Chief Complaint: Substance Abuse Allergies: Coded Allergies: Penicillins (Verified Allergy, Unknown, 03/06/17) codeine (Verified Allergy, Unknown, 03/06/17) Uncoded Allergies: WOOL (Allergy, Unknown, 09/11/14) Scheduled Buprenorphine/Naloxone 8-2 mg (Buprenorphine/Naloxone 8-2 mg) 1 Each Tab.subl 1 TAB PO BID Bupropion (Bupropion) 100 Mg Tablet 100 MG PO DAILY Bupropion (Bupropion) 100 Mg Tablet 100 MG PO BID Bupropion ER (Bupropion ER) 100 Mg Tablet.er 100 MG PO DAILY Olanzapine (Olanzapine) 5 Mg Tablet 5 MG PO BID Olanzapine ODT (Olanzapine ODT) 5 Mg Tablet 5 MG PO BID Olanzapine ODT (Zyprexa Zydis) 5 Mg Tablet 5 MG PO DAILY Omeprazole (Omeprazole) 20 Mg Capsule.dr 20 MG PO BID Scheduled PRN Alprazolam (Alprazolam) 1 Mg Tablet 1 MG PO DIRECTED PRN PRN For Anxiety 1 q6 hrs for 4 doses, then 1 q8 hours for 3 doses then on q 12hrs for 2 doses. Lorazepam (Lorazepam) 1 Mg Tablet 1 MG PO TID PRN PRN For Alcohol Cessation Past Medical History Past Medical History Notes: Multiple ED visits - all for ETOh/substance abuse/SI Past Medical History TBI Hep C Tuberculosis Hypertension Alcoholic seizures - possible EtOH abuse Meth abuse Heroin abuse Suicide attempts Bipolar Disorder Personality disorders Depression Past Surgical History Prior trauma jumping from a 6 story building. bilateral knees ACL Family History Noncontributory Smoking History Current Every Day Smoker Social History Hx of EtOH abuse Hx of polysubstance abuse (Meth, Heroin) Alcohol Use: >5 per day Drug Use: In recovery, IV drugs, Meth, Other Other Social History: Poor social support, Frequent ED visitor, Homeless Ambulatory Status Independent Physical Exam Initial Vital Signs Vital Signs (First) Date Time Temp Pulse Resp B/P Pulse Ox O2 Delivery O2 Flow Rate FiO2 04/13/17 09:11 36.8 96 16 131/80 98 Room Air Discharge & Departure Referrals: [facility] (PCP) Evelio Galvez MD Apr 13, 2017 09:22
== END 2017-04-13 09:25 | disposition left against medical advice (07) ==
LOC: SED 08:54
DX: Z53.20 Procedure and treatment not carried out because of patient's decision for unspecified reasons (principal)

== ENCOUNTER 2017-04-23 23:00 | Emergency (ER) | payer OTHER ==
[~2017-04-23] VITALS: Ht 180.3 cm; Wt 89.8 kg
[2017-04-23 23:08] VITALS: BP 113/78; PULSE 97; RESP 26; O2SAT 96
--- NOTE | 2017-04-24 00:45 | ED.REPORT ---
HPI-General Illness Date of Service Apr 24, 2017 ED Provider: Jaciel Alejandre MD Patient is a 56 year old male with a history of Hepatitis C, TB, hypertension, bipolar disorder and frequent visits to the ED for alcohol abuse who presents to the ED stating he would like to detox and go to [facility]. Patient admits to using meth a couple days ago. He reports that his last drink was right before he came to the ED. The patient states that he has been stealing multiple bottles of alcohol every day for the past few weeks. He reports that he drinks at least half a gallon a day. He states that he starts to get the shakes when he doesn't drink but has no other medical complaints at this time. Nursing Notes Stated Complaint: DETOX Chief Complaint: Substance Abuse Nursing Notes Reviewed: Yes Allergies: Coded Allergies: Penicillins (Verified Allergy, Unknown, 03/06/17) codeine (Verified Allergy, Unknown, 03/06/17) Uncoded Allergies: WOOL (Allergy, Unknown, 09/11/14) Scheduled Buprenorphine/Naloxone 8-2 mg (Buprenorphine/Naloxone 8-2 mg) 1 Each Tab.subl 1 TAB PO BID Bupropion (Bupropion) 100 Mg Tablet 100 MG PO DAILY Bupropion (Bupropion) 100 Mg Tablet 100 MG PO BID Bupropion ER (Bupropion ER) 100 Mg Tablet.er 100 MG PO DAILY Olanzapine (Olanzapine) 5 Mg Tablet 5 MG PO BID Olanzapine ODT (Olanzapine ODT) 5 Mg Tablet 5 MG PO BID Olanzapine ODT (Zyprexa Zydis) 5 Mg Tablet 5 MG PO DAILY Omeprazole (Omeprazole) 20 Mg Capsule.dr 20 MG PO BID Scheduled PRN Alprazolam (Alprazolam) 1 Mg Tablet 1 MG PO DIRECTED PRN PRN For Anxiety 1 q6 hrs for 4 doses, then 1 q8 hours for 3 doses then on q 12hrs for 2 doses. Lorazepam (Lorazepam) 1 Mg Tablet 1 MG PO TID PRN PRN For Alcohol Cessation General Time Seen by : 00:21 Chief Complaint Other (detox) Hx Obtained From: Patient Arrived By: Walk-in Severity: Current: No pain currently Recent Healthcare: Recent doctor visit Similar Sx Previous: Yes Past Medical History Past Medical History Notes: Multiple ED visits - all for ETOh/substance abuse/SI Past Medical History TBI Hep C Tuberculosis Hypertension Alcoholic seizures - possible EtOH abuse Meth abuse Heroin abuse Suicide attempts Bipolar Disorder Personality disorders Depression TB Past Surgical History Prior trauma jumping from a 6 story building. bilateral knees ACL Family History Noncontributory Smoking History Current Every Day Smoker Social History Hx of EtOH abuse Hx of polysubstance abuse (Meth, Heroin) Alcohol Use: >5 per day Drug Use: In recovery, IV drugs, Meth, Other Other Social History: Poor social support, Frequent ED visitor, Homeless Ambulatory Status Independent Review of Systems Unable to Obtain ROS Patient condition, Intoxicated Full Review of Systems Neurologic: Reports: Shaking Complete sys rev & neg: except as marked. Physical Exam Vital Signs Vital Signs Date Time Temp Pulse Resp B/P Pulse Ox O2 Delivery O2 Flow Rate FiO2 04/23/17 23:08 36.9 97 26 113/78 96 Room Air Initial VS: Reviewed General/Constitutional: Awake, Alert Appearance / Presentation: Positive: Intoxicated poorly kept Head / Eyes: Atraumatic, Normocephalic, PERRL, EOMI Respiratory / Chest: Atraumatic, Breath sounds NL, Breath sounds = bilat, No respiratory distress Cardiovascular: Heart rate NL, Regular rhythm, Heart sounds NL, No gallop, No murmurs, No rubs Skin: Atraumatic, Color NL, No rash, Warm, Dry Interpretation & Diagnostics Lab Results Interpretation Test 04/24/17 01:47 Hold Urine Received (Received) Re-Eval/Medical Decision Med Decision/Clinical Course Patient is a 56 year old male with a history of Hepatitis C, TB, hypertension, bipolar disorder and frequent visits to the ED for alcohol abuse who presents to the ED stating he would like to detox and go to [facility]. Patient admits to using meth a couple days ago. He reports that his last drink was right before he came to the ED. The patient states that he has been stealing multiple bottles of alcohol every day for the past few weeks. He reports that he drinks at least half a gallon a day. He states that he starts to get the shakes when he doesn't drink but has no other medical complaints at this time. Here in the emergency department the patient is afebrile and hemodynamically stable. Breathalyzer 0.035 U tox: positive for benzodiazepines The patient reports that he is been drinking large quantities of hard alcohol his breathalyzer does not reflect this. He also reports that he has been using methamphetamine however his urine tox screen does not show positive for methamphetamine. He reports that he needs benzodiazepines for alcohol withdrawal however he does not demonstrate findings suggestive of significant alcohol withdrawal syndrome at this time. Therefore, I have opted to withhold benzodiazepines. I see no evidence of significant trauma or acute medical issue at this moment. We will continue to observe him in the emergency department with plan for social work evaluation in the morning. He does have known polysubstance abuse history and seems interested in detox. He will be signed out to the oncoming physician. Time of Eval: 01:07 Re-Evaluation/Progress Note: Discussed plan for director of social services to see him in the morning. Discharge & Departure Shift Change Sign-Out Patient Care Transferred: Yes Discussed Complaint(s): Yes Primary Impression: Alcohol abuse Additional Impressions: Polysubstance abuse Homelessness Discharge Condition All VS Reviewed: Yes Condition: Stable Referrals: [facility] (PCP) Care Transferred to: Dr. Elizabeth Care Transferred at: 06:00 [place] Attestation Portions of this note were transcribed by Hilda Mckeon. I, Dr. Alejandre personally performed the history, physical exam and medical decision-making; I reviewed and confirmed the accuracy of the information in the transcribed note. Signed by: [place], 04/23/17 copies to: [facility] Jaciel Alejandre MD Apr 24, 2017 00:45 Ashlyn Mckeon Apr 24, 2017 00:56
[2017-04-24 06:17] VITALS: BP 126/68; PULSE 81; O2SAT 98
[2017-04-24 08:40] VITALS: BP 125/68; PULSE 80; RESP 16; O2SAT 98
[2017-04-24] MEDS ORDERED: Mupirocin 2% 22 Gm Ointment TOPICAL ONE (11:05)
[2017-04-24] MEDS ORDERED: Trimethoprim-Sulfa 160 mg-800 mg Tablet PO ONE (11:05)
--- NOTE | 2017-04-24 11:56 | DRSVH ---
PROCEDURE: X-RAY LEFT ELBOW COMPLETE, MINIMUM THREE VIEWS ([id number]) INDICATIONS: L elbow pain TECHNIQUE: 3 views of the elbow were acquired. COMPARISON: None. FINDINGS: Bones: No fractures or dislocations. No suspicious bony lesions. Soft tissues: No elbow joint effusion. No suspicious soft tissue calcifications. IMPRESSION: No acute radiographic findings. If pain persists, repeat study in 5-7 days is recommende d to exclude occult fracture. Dictated by: Silvina Pan M.D. on 04/24/2017 at 11:54 Approved by: Silvina Pan M.D. on 04/24/2017 at 11:54
[2017-04-24] MEDS ORDERED: OLANZapine Zydis ODT 5 mg Tablet PO ONE (14:45)
[2017-04-24] MEDS ORDERED: BUPR100T15 PO (14:48)
[2017-04-24] MEDS ORDERED: OLAN5TAB25 PO (14:48)
[2017-04-24] MEDS ORDERED: SULF1TAB7 PO (14:48)
[2017-04-24 14:55] VITALS: BP 129/79; PULSE 79; RESP 16; O2SAT 99
[2017-04-24 16:29] VITALS: BP 129/77; PULSE 82; RESP 16; O2SAT 97
== END 2017-04-24 16:30 | disposition other institution (70) ==
LOC: SED 23:00
DX: F10.10 Alcohol abuse, uncomplicated (principal); F15.10 Other stimulant abuse, uncomplicated; M25.522 Pain in left elbow; F17.200 Nicotine dependence, unspecified, uncomplicated; I10 Essential (primary) hypertension; Z86.11 Personal history of tuberculosis; Z87.820 Personal history of traumatic brain injury; Z88.0 Allergy status to penicillin; Z88.5 Allergy status to narcotic agent

== ENCOUNTER 2017-05-06 21:41 | Emergency (ER) | payer OTHER ==
[~2017-05-06] VITALS: Ht 182.9 cm; Wt 86.4 kg
[~2017-05-06 21:41] MED LIST changes: +SULF1TAB7 PO
[2017-05-06 21:50] VITALS: BP 120/80; PULSE 100; RESP 16; O2SAT 99
--- NOTE | 2017-05-06 22:03 | ED.REPORT ---
HPI-General Illness Date of Service May 06, 2017 ED Provider: Dr. Boggs Pt is a 56 year old male with a hx of alcohol abuse, HTN and Hep C presenting to the ED wanting to go to detox. He was at [facility] very recently and then went home and began using EtOH again. He states that he has been drinking over a half gallon of EtOH per day since he left [facility]. Denies fever, chills, nausea , vomiting, SOB or wheezing. Nursing Notes Stated Complaint: DETOX Chief Complaint: Substance Abuse Nursing Notes Reviewed: Yes Allergies: Coded Allergies: Penicillins (Verified Allergy, Unknown, 05/06/17) codeine (Verified Allergy, Unknown, 05/06/17) Uncoded Allergies: WOOL (Allergy, Unknown, 09/11/14) Scheduled Buprenorphine/Naloxone 8-2 mg (Buprenorphine/Naloxone 8-2 mg) 1 Each Tab.subl 1 TAB PO BID Bupropion (Bupropion) 100 Mg Tablet 100 MG PO DAILY Bupropion (Bupropion) 100 Mg Tablet 100 MG PO BID Bupropion (Bupropion) 100 Mg Tablet 100 MG PO DAILY Bupropion ER (Bupropion ER) 100 Mg Tablet.er 100 MG PO DAILY Olanzapine (Olanzapine) 5 Mg Tablet 5 MG PO BID Olanzapine ODT (Olanzapine ODT) 5 Mg Tablet 5 MG PO BID Olanzapine ODT (Zyprexa Zydis) 5 Mg Tablet 5 MG PO DAILY Olanzapine ODT (Zyprexa Zydis) 5 Mg Tablet 5 MG PO BID Olanzapine ODT (Olanzapine ODT) 5 Mg Tablet 5 MG PO HS Omeprazole (Omeprazole) 20 Mg Capsule.dr 20 MG PO BID Sulfamethoxazole/Trimeth 800-160 mg (Bactrim DS) 1 Each Tablet 1 TABLET PO BID Scheduled PRN Alprazolam (Alprazolam) 1 Mg Tablet 1 MG PO DIRECTED PRN PRN For Anxiety 1 q6 hrs for 4 doses, then 1 q8 hours for 3 doses then on q 12hrs for 2 doses. Lorazepam (Lorazepam) 1 Mg Tablet 1 MG PO TID PRN PRN For Alcohol Cessation Ondansetron ODT (Ondansetron ODT) 8 Mg Tab.rapdis 8 MG PO QID PRN PRN For Nausea General Time Seen by MD: 22:02 Chief Complaint Other (Alcohol abuse) Hx Obtained From: Patient Arrived By: Walk-in Sudden in Onset?: No Onset Occurred: Onset unknown Context of Onset: EtOH use Symptom Duration: Since onset Severity: Current: No pain currently Severity: Maximum: No pain Recent Healthcare: No recent hospitalization, Recent doctor visit Similar Sx Previous: Yes Past Medical History Past Medical History Notes: Multiple ED visits - all for ETOh/substance abuse/SI Past Medical History TBI Hep C Tuberculosis Hypertension Alcoholic seizures - possible EtOH abuse Meth abuse Heroin abuse Suicide attempts Bipolar Disorder Personality disorders Depression TB Past Surgical History Prior trauma jumping from a 6 story building. bilateral knees ACL Family History Noncontributory Smoking History Current Every Day Smoker Social History Hx of EtOH abuse Hx of polysubstance abuse (Meth, Heroin) Alcohol Use: >5 per day Drug Use: In recovery, IV drugs, Meth, Other Other Social History: Poor social support, Frequent ED visitor, Homeless Ambulatory Status Independent Review of Systems Full Review of Systems Constitutional: Denies: Chills, Fever Respiratory: Denies: Shortness of breath, Wheezing GI: Denies: Nausea, Vomiting Complete sys rev & neg: except as marked. Physical Exam Vital Signs Vital Signs Date Time Temp Pulse Resp B/P Pulse Ox O2 Delivery O2 Flow Rate FiO2 05/07/17 00:33 36.4 98 18 146/82 97 Room Air 05/06/17 21:50 37.5 100 16 120/80 99 Room Air Initial VS: Reviewed Head / Eyes: Atraumatic, Normocephalic, PERRL ENT: Mucous membranes moist, Conjunctiva normal, No scleral icterus Neck: Supple, Non-tender, Full range of motion Respiratory: Breath sounds normal, Clear to auscultation, No respiratory distress Cardiovascular: Regular rate & rhythm, Heart sounds normal, Intact distal pulses Abdomen / GI: Soft, Non-tender, No guarding, No rebound, No distention Extremities: Vascular intact, Neuro intact, No swelling, No tenderness Skin: Warm, Dry, No cyanosis Neurologic: Alert, Oriented, Nonfocal Psychiatric: Mood/affect normal, Behavior normal, Normal thought content General/Constitutional: Awake, Alert, No acute distress Sunburned. Seems relatively focused on getting better. No tremor. Interpretation & Diagnostics Lab Results Interpretation Result Diagram: 05/06/17 2317 05/06/17 2317 Test 05/06/17 23:17 05/06/17 23:05/07/17 00:23 White Blood Count 8.7th/mm3 (3.8-10.1) Red Blood Count 4.41mil/mm3 (4.40-5.80) Hemoglobin 14.3g/dL (13.8-17.2) Hematocrit 40.2% (41.0-50.0) Mean Corpuscular Volume 91.2fL (81-100) Mean Corpuscular Hemoglobin 32.4pg (27.0-35.0) Mean Corpuscular Hemoglobin Concent 35.6% (32.0-37.0) Red Cell Distribution Width 12.7% (12.3-15.4) Platelet Count 230bil/L (150-400) Neutrophils (%) (Auto) 66.5% (40-74) Lymphocytes (%) (Auto) 21.0% (14-46) Monocytes (%) (Auto) 9.5% (4-12) Eosinophils (%) (Auto) 2.3% (0-5) Basophils (%) (Auto) 0.1% (0-3) Sodium Level 134mEq/L (134-144) Potassium Level 4.0mEq/L (3.5-5.2) Chloride Level 94mEq/L (97-108) Carbon Dioxide Level 24mmol/L (18-29) Blood Urea Nitrogen 17mg/dL (6-24) Creatinine 0.89mg/dL (0.76-1.27) Estimat Glomerular Filtration Rate 94mL/min (>59) Glucose Level 106mg/dL (60-99) Calcium Level 9.0mg/dL (8.5-10.1) Total Bilirubin 0.6mg/dL (0.0-1.2) Aspartate Amino Transf (AST/SGOT) 50U/L (0-50) Alanine Aminotransferase (ALT/SGPT) 55U/L (0-44) Alkaline Phosphatase 82U/L (25-150) Total Protein 7.2g/dL (6.4-8.4) Albumin 4.1g/dL (3.4-5.0) Hold Rosado Top Tube Received (Received) Hold Urine Received (Received) Re-Eval/Medical Decision Med Decision/Clinical Course 56-year-old with chronic alcoholism, and multiple complications including withdrawal seizures, chronic pancreatitis, presents not legally intoxicated for detox. Begun with Ativan orally and the detox protocol provided. Medically clear for outpatient detox at [facility]. Time of Eval: 23:26 Patient Status: Condition improved Re-Evaluation/Progress Note: Discussed plan for discharge to Crisis. Pt understands and agrees. Counseled Regarding: Diagnosis, Lab results, Need for follow-up, When/why to return to ED Discharge & Departure Primary Impression: Alcohol abuse Additional Impression: Polysubstance abuse Disposition: Home Discharge Condition All VS Reviewed: Yes Condition: Improved Patient Instructions: Alcohol Withdrawal (DC) Additional Instructions: Go to crisis as planned. Take meds as directed by staff. Good luck in securing a long-term treatment bed. Referrals: [facility] (PCP) Scribe Attestation Portions of this note were transcribed by Nora Venegas. I, Dr. Boggs personally performed the history, physical exam and medical decision-making; I reviewed and confirmed the accuracy of the information in the transcribed note. Signed by: [place], 05/06/2017. copies to: [facility] Luis Boggs MD May 06, 2017 22:02 NORA VENEGAS May 06, 2017 22:49
[2017-05-06 23:20] LABS: BASOPHILS % (AUTO) 0.1 % (0-3); EOSINOPHILS % (AUTO) 2.3 % (0-5); MONOCYTES % (AUTO) 9.5 % (4-12); Mean Corpuscular Hemoglobin 32.4 pg (27.0-35.0); Mean Corpuscular Volume 91.2 fL (81-100); NEUTROPHILS % (AUTO) 66.5 % (40-74); Platelet Count 230 bil/L (150-400)
[2017-05-06] MEDS ORDERED: _Ondansetron ODT 4 mg Tablet PO PRN (23:25)
[2017-05-06] MEDS ORDERED: LORazepam 2 mg Tablet PO ONE (23:25)
[2017-05-06] MEDS ORDERED: _LORazepam 2 MG Tablet PO SCH (23:25)
[2017-05-06] MEDS ORDERED: ONDA8TAB10 PO (23:29)
[2017-05-06] MEDS ORDERED: OLAN5TAB39 PO (23:29)
[2017-05-07 00:33] VITALS: BP 146/82; PULSE 98; RESP 18; O2SAT 97
== END 2017-05-07 00:35 | disposition home or self-care (01) ==
LOC: SED 21:41
DX: F10.20 Alcohol dependence, uncomplicated (principal); F19.10 Other psychoactive substance abuse, uncomplicated; I10 Essential (primary) hypertension; F31.9 Bipolar disorder, unspecified; F32.9 Major depressive disorder, single episode, unspecified; F17.200 Nicotine dependence, unspecified, uncomplicated; F11.21 Opioid dependence, in remission; F15.21 Other stimulant dependence, in remission; Z87.820 Personal history of traumatic brain injury; Z91.5 Personal history of self-harm; Z59.0 Homelessness; Z88.0 Allergy status to penicillin; Z88.5 Allergy status to narcotic agent

== ENCOUNTER 2017-05-20 01:35 | Emergency (ER) | payer OTHER ==
[~2017-05-20] VITALS: Ht 180.3 cm; Wt 88.6 kg
[~2017-05-20 01:35] MED LIST changes: +ONDA8TAB10 PO
[2017-05-20 01:40] VITALS: BP 144/89; PULSE 90; RESP 12; O2SAT 98
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
[2017-05-20 02:13] LABS: BASOPHILS % (AUTO) 0.3 % (0-3); EOSINOPHILS % (AUTO) 0.6 % (0-5); MONOCYTES % (AUTO) 9.2 % (4-12); Mean Corpuscular Volume 91.4 fL (81-100); NEUTROPHILS % (AUTO) 77.8 % (40-74); Platelet Count 317 bil/L (150-400)
[2017-05-20] MEDS ORDERED: levoFLOXacin 750 mg Tablet PO ONE (08:00)
--- NOTE | 2017-05-20 08:31 | DRSVH ---
PROCEDURE: X-RAY CHEST, TWO VIEWS ([id number]) INDICATIONS: cough TECHNIQUE: 2 views of the chest were acquired. COMPARISON: None. FINDINGS: Surgical changes and devices: None. Lungs and pleura: Masslike right lower lobe pulmonary opacity. Remaining lungs are clear. No definite pleural effusions. No pneumothoraces. Mediastinum: Mediastinal contours are normal. Heart size is normal. Bones and chest wall: No suspicious bony abnormalities. Soft tissues appear unremarkable. IMPRESSION: Right basilar masslike pulmonary opacity. Recommend a followup radiograph in 8-10 weeks to verify res olution. If mass persists a chest CT with contrast will be needed. Dictated by: Phoenix Mason M.D. on 05/20/2017 at 8:28 Approved by: Phoenix Mason M.D. on 05/20/2017 at 8:29
[2017-05-20 11:43] VITALS: BP 134/87; PULSE 83; RESP 18; O2SAT 98
[2017-05-20] MEDS ORDERED: LEVO750T39 PO (15:20)
[2017-05-20] MEDS ORDERED: LORA0.5T PO (15:20)
== END 2017-05-20 15:34 | disposition home or self-care (01) ==
LOC: SED 01:35
DX: R45.851 Suicidal ideations (principal); J69.0 Pneumonitis due to inhalation of food and vomit; F17.200 Nicotine dependence, unspecified, uncomplicated; F15.10 Other stimulant abuse, uncomplicated; F10.220 Alcohol dependence with intoxication, uncomplicated; Z91.5 Personal history of self-harm; Z59.0 Homelessness; Z88.0 Allergy status to penicillin; Z88.6 Allergy status to analgesic agent